=== PATIENT | female | born 1975 | race Caucasian/White ===

== ENCOUNTER 2017-06-15 19:10 | Emergency (ER) | payer MEDICAID ==
[~2017-06-15] VITALS: Ht 162.6 cm; Wt 87.1 kg
[2017-06-15 22:24] VITALS: BP 142/92
== END 2017-06-15 22:24 | disposition home or self-care (01) ==
LOC: ED 19:10
DX: J06.9 Acute upper respiratory infection, unspecified (principal)
CPT/HCPCS: J1100; J8540; Q0162

== ENCOUNTER 2017-07-03 15:46 | Emergency (ER) | payer MEDICAID ==
[~2017-07-03] VITALS: Ht 162.6 cm; Wt 89.3 kg
[2017-07-03 15:51] VITALS: Ht 162.6 cm; Wt 89.3 kg
[2017-07-03 17:41] VITALS: BP 150/84
== END 2017-07-03 17:41 | disposition home or self-care (01) ==
LOC: ED 15:46
DX: J06.9 Acute upper respiratory infection, unspecified (principal)
CPT/HCPCS: J1100

== ENCOUNTER 2020-04-20 17:48 | Emergency (ER) | payer OTHER, SELFPAY ==
[~2020-04-20] VITALS: Ht 162.6 cm; Wt 108.9 kg
[2020-04-20 17:49] VITALS: Ht 162.6 cm; Wt 108.9 kg
[2020-04-20 19:37] VITALS: BP 172/99
== END 2020-04-20 19:37 | disposition home or self-care (01) ==
LOC: ED 17:48
DX: U07.1 COVID-19 (principal)
CPT/HCPCS: Q0092; U0003-CS